=== PATIENT | female | born 1990 | race Caucasian/White ===

== ENCOUNTER 2021-07-24 17:03 | Emergency (ER) | payer OTHER, BC, SELFPAY ==
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
[2021-07-24 17:32] VITALS: BP 131/79; PULSE 90; RESP 16; TEMP 37; O2SAT 100
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
[2021-07-24] MEDS: IBUPROFEN 600 MG TABLET PO (18:14)
[2021-07-24] MEDS: ONDANSETRON HCL ODT 4 MG TABLET PO (18:51)
--- NOTE | 2021-07-24 19:15 | PC.NURSE ---
Assumed care of pt at this time, pt alert and upright on stretcher. Pt updated on POC.
[2021-07-24 19:29] VITALS: BP 133/83; PULSE 75; RESP 16; O2SAT 100
--- NOTE | 2021-07-24 20:25 | PC.NURSE ---
Pt asked about wait time for CT scan. Pt states If you dont have time for me, I just want to go home . This RN educated pt on the process for obtaining CT scans and why pt has had to wait. Pt verbalized that she wants to go home. ANN Linton notified.
--- NOTE | 2021-07-24 21:21 | PC.NURSE ---
This RN entered room to update pt that she was next for CT. Pt verbally agitated about wait time. Pt states If you guys cared about me and my health, I would've gone to CT already. Either bring me a wheelchair and take me, or bring me my papers . EDP notified of pts intent to leave AMA.
--- NOTE | 2021-07-24 21:29 | PC.NURSE ---
Pt to CT via wheelchair at this time. Pt upright in chair, in no obvious distress.
[2021-07-24 21:58] VITALS: BP 122/76; PULSE 76; RESP 16; O2SAT 100
== END 2021-07-24 22:00 | disposition left against medical advice (07) ==
PROVIDERS: Emergency Provider Emergency Medicine; PCP Family Medicine
DX: S16.1XXA Strain of muscle, fascia and tendon at neck level, initial encounter (principal); S29.9XXA Unspecified injury of thorax, initial encounter; S39.92XA Unspecified injury of lower back, initial encounter; E03.9 Hypothyroidism, unspecified; V43.62XA Car passenger injured in collision with other type car in traffic accident, initial encounter
CPT/HCPCS: 71046; 72070; 72110; 72125; 74176; 81025; 99284; A9270